=== PATIENT | female | born 1950 | race Caucasian/White ===

== ENCOUNTER 2016-10-23 10:53 | Outpatient (CLI) | payer OTHER ==
--- NOTE | 2016-10-23 13:50 | DIAGNOSTIC IMAGING REPORT ---
PROCEDURE: MG UNILATERAL DIAG-RT W/CAD INDICATION: F/U ABN BLOSSOM TECHNIQUE: True-lateral digital view of right breast. In addition, spot compression CC, lateral, and MLO views were obtained of the posterior lateral right breast (region of clinical concern). COMPARISON: Comparison made to screening mammogram study (09/11/2016). FINDINGS: MAMMOGRAM: Computer-aided detection applied. Mildly dense parenchymal with normal asymmetric parenchyma in the upper outer right breast. No evidence of mass or suspicious calcification. Right breast ultrasound is not indicated at this time. IMPRESSION: 1. Negative mammogram with normal asymmetric parenchyma in the upper outer right breast. 2. Resume routine screening schedule (August 2017). 3. 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 A. A negative report should not delay biopsy if a dominant or clinically suspicious mass is present. 10-15% of cancers are not identified by x-ray. B. A negative report may reinforce clinical impression. C. Adenosis and dense breasts may obscure an underlying neoplasm. D. False positive reports average 6-10%. E.. A yearly screening mammogram is recommended. A reminder letter will be scheduled.
--- NOTE | 2016-10-23 13:50 | DIAGNOSTIC IMAGING REPORT ---
PROCEDURE: MG UNILATERAL DIAG-RT W/CAD INDICATION: F/U ABN BLOSSOM TECHNIQUE: True-lateral digital view of right breast. In addition, spot compression CC, lateral, and MLO views were obtained of the posterior lateral right breast (region of clinical concern). COMPARISON: Comparison made to screening mammogram study (09/11/2016). FINDINGS: MAMMOGRAM: Computer-aided detection applied. Mildly dense parenchymal with normal asymmetric parenchyma in the upper outer right breast. No evidence of mass or suspicious calcification. Right breast ultrasound is not indicated at this time. IMPRESSION: 1. Negative mammogram with normal asymmetric parenchyma in the upper outer right breast. 2. Resume routine screening schedule (August 2017). 3. 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 A. A negative report should not delay biopsy if a dominant or clinically suspicious mass is present. 10-15% of cancers are not identified by x-ray. B. A negative report may reinforce clinical impression. C. Adenosis and dense breasts may obscure an underlying neoplasm. D. False positive reports average 6-10%. E.. A yearly screening mammogram is recommended. A reminder letter will be scheduled.
== END 2016-10-23 23:00 ==
LOC: MAM SRH 10:53
DX: N64.89 Other specified disorders of breast (principal)

== ENCOUNTER 2016-12-26 10:19 | Outpatient (CLI) | payer OTHER ==
--- NOTE | 2016-12-26 13:57 | DIAGNOSTIC IMAGING REPORT ---
PROCEDURE: US BREAST ULTRASOUND - LEFT INDICATION: Left breast pain TECHNIQUE: Welch scale and color Doppler sonographic images of the left breast were acquired. COMPARISON: None. FINDINGS: Sonographically normal breast tissue. No suspicious cyst, solid mass, calcification, or unusual shadowing. No abnormal hypervascularity in the tissue. IMPRESSION: 1. Normal left breast tissue. No sonographic evidence of neoplasm. 2. The patient can continue yearly screening mammography. Findings were discussed with the patient. RESULT CODE: 1- Negative. A. A negative report should not delay biopsy if a dominant or clinically suspicious mass is present. 10-15% of cancers are not identified by x-ray. B. A negative report may reinforce clinical impression. C. Adenosis and dense breasts may obscure an underlying neoplasm. D. False positive reports average 6-10%. E.. A yearly screening mammogram is recommended. A reminder letter will be scheduled.
== END 2016-12-26 23:00 ==
LOC: US SRH 10:19
DX: N60.02 Solitary cyst of left breast (principal)